=== PATIENT | female | born 1995 | race Caucasian/White ===

== ENCOUNTER 2016-07-16 15:41 | Emergency (ER) | payer OTHER ==
[~2016-07-16] VITALS: Ht 172.7 cm; Wt 77.3 kg
[2016-07-16 15:59] VITALS: BP 144/94; PULSE 85; TEMP 97.7
[2016-07-16] MEDS ORDERED: ZITHROMAX 250M250 MG PO (16:04)
[2016-07-16] MEDS ORDERED: MEDROL 4MG DOSPA4 MG PO (16:33)
== END 2016-07-16 16:40 | disposition home or self-care (01) ==
LOC: COL.ER 15:41
DX: R05 Cough (principal); R07.81 Pleurodynia